=== PATIENT | female | born 1960 | race Caucasian/White ===

== ENCOUNTER 2020-09-25 12:08 | Outpatient (CLI) | payer OTHER, SELFPAY ==
--- NOTE | ~2020-09-25 | MM_ITS ---
EXAMINATION: MM screening jasmin BI w vivian HISTORY: Screening TECHNIQUE: Craniocaudal and mediolateral oblique 3-D tomosynthesis images were obtained and synthetic 2-D images were generated. CAD analysis was submitted and interpreted. COMPARISON: Comparison to multiple prior studies sequentially, with oldest reviewed study dated 07/05. BREAST PARENCHYMAL COMPOSITION: There are scattered areas of fibroglandular density. FINDINGS: There is no evidence of suspicious mass, calcification, or architectural distortion to sugg est malignancy in either breast. There has been no suspicious interval change. IMPRESSION: 1. No mammographic evidence of malignancy. 2. Recommend routine screening mammography in one year. BI-RADS Category 1: Negative Reviewed, dictated and finalized at location A.
--- NOTE | ~2020-09-25 | DEXA_ITS ---
Bone Density Report Name: Clover Bonilla Age: 60 Sex: Female Ethnicity: White Date of : 1960 Indication: postmenopausal; screening for osteoporosis; asthma or emphysema; Referring Provider: Cricket Logan Study: Bone densitometry was performed. Exam Date: September 25, 2020 Accession number: [id number] Bone Density: Region BMD T-score Z-score Classification AP Spine(L1-L4) 0.796 -2.3 -0.9 Osteopenia Femoral Neck (Left) 0.601 -2.2 -1.0 Osteopenia Total Hip (Left) 0.857 -0.7 0.2 Normal Femoral Neck (Right) 0.570 -2.5 -1.3 Osteoporosis Total Hip (Right) 0.861 -0.7 0.2 Normal Femoral Neck Mean 0.586 -2.4 -1.1 Osteopenia Total Hip Mean 0.859 -0.7 0.2 Normal World Health Organization criteria for BMD impression classify patients as: Normal (T-score at or above -1.0), Osteopenia (T-score between -1.0 and -2.5), or Osteoporosis (T-score at or below -2.5). 10-year Fracture Risk: FRAX not reported because: Some T-score for Spine Total or Hip Total or Femoral Neck at or below -2.5 Previous Exams: Region Exam Age BMD T-score BMD Change BMD Change Date g/cm2 vs Baseline vs Previous AP Spine (L1-L4) 09/25/2020 60 0.796 -2.3 -0.255 (-24.3% -0.255 (-24.3% 08/12/2012 51 1.052 0.0 Total Hip(Left) 09/25/2020 60 0.857 -0.7 -0.078 (-8.3%) -0.078 (-8.3%) 08/12/2012 51 0.934 -0.1 Total Hip(Right) 09/25/2020 60 0.861 -0.7 -0.087 (-9.1%) -0.087 (-9.1%) 08/12/2012 51 0.948 0.0 *Denotes significance at 95% confidence level, LSC for AP Spine = 0.022 g/cm2, LSC for Total Hip = 0.027 g/cm2 # Denotes dissimilar scan types or analysis methods Clinical Information Provided by Patient: Has used the following medications: Vitamin D Has the following medical conditions: Asthma or Emphysema Patient maximum height was 62 No regular weight bearing exercise Does not regularly consume dairy products Drinks caffeinated beverages Onset of menses at age 14 Number of children 2 Impression: The patient has osteoporosis, based on the Right Femoral Neck T-score. No significant bone loss was observed. Discussion: INCREASED RISK OF FRACTURE. BONE DENSITY IS UNDESIRABLY LOW AT ONE OR MORE SKELETAL SITES, CONSISTENT WITH POSTMENOPAUSAL OSTEOPOROSIS. This patient's lowest T-score meets the World Health Organization's (WHO) criteria for osteoporosis at one or more sites (T-score -2.5 or below). In untreated patients, the risk of osteoporo
== END 2020-09-25 12:09 | disposition home or self-care (01) ==
LOC: CHSIMG 12:10
PROVIDERS: PCP Internal Medicine; Visit Provider Internal Medicine
DX: M81.0 Age-related osteoporosis without current pathological fracture (principal); Z12.31 Encounter for screening mammogram for malignant neoplasm of breast
CPT/HCPCS: 77063; 77067; 77080

== ENCOUNTER 2021-08-05 10:43 | Emergency (ER) | payer OTHER, SELFPAY ==
[2021-08-05 10:50] VITALS: BP 155/88; PULSE 81; RESP 16; TEMP 36.9; O2SAT 95
--- NOTE | 2021-08-05 11:31 | ED.EAR ---
HPI - Ear Problem General Chief complaint: Ear Stated complaint: earache and bleeding left side Time Seen by Provider: 08/05/21 10:45 Source: patient and RN notes reviewed Mode of arrival: ambulatory Limitations: no limitations History of Present Illness MD Complaint: ear pain and ear discharge Location: left ear Duration: constant Severity: mild Relieving factors: nothing Exacerbating factors: chewing Discharge from ear: Reports yes - bloody Associated symptoms ear: decreased hearing and external ear tenderness Treatment prior to arrival: none Related Data Allergies Allergy/AdvReac Type Severity Reaction Status Date / Time No Known Allergies Allergy Verified 08/05/21 11:00 Review of Systems Review of Systems: All systems reviewed & are unremarkable except as noted in HPI and below ENT: Reports nasal congestion PMFSH Past Medical History Medical History Otitis media Exam Const: General: no acute distress and alert Nutritional Appearance: well nourished Orientation/consciousness: patient oriented x3 Limitations: no limitations HENMT: Head: normal to inspection Ears: external ears normal and TM abnormal (left TM rupture with heme colored d/c. mild pharyngeal redness) Eyes: Conjunctivae: conjunctivae normal Pupils: Equal, round and reactive pupils present EOM: EOMs intact bilaterally Neck: Neck: normal visual inspection and no lymphadenopathy Other: supple Chest: Chest palpation & inspection: normal inspection of the chest Resp: Effort & Inspection: normal respiratory effort Auscultation: clear to auscultation bilaterally Cardio: Rate: regular rate Rhythm: regular rhythm GI: GI Palp: Yes Soft to palpation and No Tenderness to palpation present (GI) : General: Yes bladder normal to palpation and Yes no CVA tenderness Back/Spine/Pelvis: Back: no CVA tenderness Skin: General skin exam: normal color Rashes: no rashes Neuro: General: patient oriented x3, moves all extremities, no meningeal signs, no focal motor deficits and CN's II-XI intact bilaterally Extrem: General: normal to inspection and no pedal edema Psych: Appearance: grossly normal and well kempt Mental Status: mental status grossly normal Affect: normal affect Attitude: cooperative Thought content: Yes Normal thought content present Course Course Emergency Course: Pt was stable in the ED. Reevaluation(s) Reevaluation #1: VSS Date: 08/05/21 Time: 11:40 Vital Signs Vital signs: Vital Signs Temperature 36.9 C 08/05/21 10:50 Pulse Rate 81 08/05/21 10:50 Respiratory Rate 16 08/05/21 10:50 Blood Pressure 155/88 H 08/05/21 10:50 Pulse Oximetry 95 08/05/21 10:50 Temperature 36.9 C 08/05/21 10:50 Pulse Rate 81 08/05/21 10:50 Respiratory Rate 16 08/05/21 10:50 Blood Pressure 155/88 H 08/05/21 10:50 Pulse Oximetry 95 08/05/21 10:50 Medical Decision Making Differential Diagnosis Differential Diagnosis: OM, ruptured left TM, Medical Records Medical records reviewed: Yes I reviewed the external patient's medical records. Vital Signs Vital Signs: Vital Signs Temperature 36.9 C 08/05/21 10:50 Pulse Rate 81 08/05/21 10:50 Respiratory Rate 16 08/05/21 10:50 Blood Pressure 155/88 H 08/05/21 10:50 Pulse Oximetry 95 08/05/21 10:50 Temperature 36.9 C 08/05/21 10:50 Pulse Rate 81 08/05/21 10:50 Respiratory Rate 16 08/05/21 10:50 Blood Pressure 155/88 H 08/05/21 10:50 Pulse Oximetry 95 08/05/21 10:50 Critical Care Time Critical Care Time Critical Care Time: No Total Critical Care Time: 0 Discharge Plan Discharge Clinical Impression: Otitis media Qualifiers: Otitis media type: suppurative Chronicity: acute Laterality: left Recurrence: non-recurrent Spontaneous tympanic membrane rupture: with spontaneous rupture Qualified Code(s): H66.012 - Acute suppurative otitis media with spontaneous rupture of
[2021-08-05] MEDS: guaiFENesin 12 HR 600 MG TABCR (11:35)
[2021-08-05] MEDS: ACETAMINOPHEN 325 MG TABLET 650 MG PO (11:36)
== END 2021-08-05 11:45 | disposition home or self-care (01) ==
PROVIDERS: Emergency Provider Emergency Medicine; PCP Internal Medicine
DX: H66.012 Acute suppurative otitis media with spontaneous rupture of ear drum, left ear (principal)
CPT/HCPCS: 99283; A9270

== ENCOUNTER 2021-09-03 07:29 | Outpatient (CLI) | payer OTHER, SELFPAY ==
--- NOTE | ~2021-09-03 | MM_ITS ---
EXAMINATION: MM screening jasmin BI w vivian HISTORY: Screening mammogram TECHNIQUE: Craniocaudal and mediolateral oblique 3-D tomosynthesis images were obtained and synthetic 2-D images were generated. CAD analysis was submitted and interpreted. COMPARISON: 10/12/2020, 07/15/2016 bilateral digital screening mammogram examinations BREAST PARENCHYMAL COMPOSITION: There are scattered areas of fibroglandular density. FINDINGS: There are several stable circumscribed benign appearing intramammary lymph nodes in the pos terior upper outer quadrant of the left breast. There is no evidence of suspicious mass, calcification, or architectural distortion to suggest malig jaylen in either breast. There has been no suspicious interval change. IMPRESSION: 1. No mammographic evidence of malignancy. 2. Recommend routine screening mammography in one year. BI-RADS Category 2: Benign finding(s). Reviewed, dictated and finalized at location A.
== END 2021-09-03 07:30 | disposition home or self-care (01) ==
LOC: CHSIMG 07:30
PROVIDERS: PCP Internal Medicine; Visit Provider Internal Medicine
DX: Z12.31 Encounter for screening mammogram for malignant neoplasm of breast (principal)
CPT/HCPCS: 77063; 77067

== ENCOUNTER 2021-11-12 14:24 | Outpatient (CLI) | payer OTHER, SELFPAY ==
--- NOTE | ~2021-11-12 | XR_ITS ---
EXAM: XR hand RT min 3V DATE: 11/12/2021 14:47 HISTORY: RT 2nd MCP joint pain swelling x 2wks, NKI . COMPARISON: None available. FINDINGS: Mildly decreased mineralization. No fracture or dislocation. No lytic or blastic lesion. S hort fifth metacarpal. Mild narrowing at the radiocarpal joint, with subchondral cyst formation in th e lunate. Mild degenerative narrowing in the finger joints. No erosion or periosteal change. Soft tis jessica swelling over the second MCP. IMPRESSION: No acute osseous finding. Scattered degenerative changes. Reviewed, dictated and finalized at location K.
== END 2021-11-12 14:25 | disposition home or self-care (01) ==
LOC: CHSIMG 14:26
PROVIDERS: PCP Internal Medicine; Visit Provider Nurse Practitioner Family
DX: M79.641 Pain in right hand (principal)
CPT/HCPCS: 73130

== ENCOUNTER 2022-12-04 12:03 | Outpatient (CLI) | payer OTHER, SELFPAY ==
--- NOTE | ~2022-12-04 | DEXA_ITS ---
Bone Density Report Name: KATHIA THURMAN Age: 62 Sex: Female Ethnicity: White Date of : 1960 Indication: postmenopausal; screening for osteoporosis; history of glucocorticoids; asthma or emphysema; Referring Provider: Cricket Logan Study: Bone densitometry was performed. Exam Date: December 04, 2022 Accession number: [id number] Bone Density: Region BMD T-score Z-score Classification AP Spine(L1-L4) 0.848 -1.8 -0.3 Osteopenia Femoral Neck (Left) 0.594 -2.3 -1.0 Osteopenia Total Hip (Left) 0.882 -0.5 0.5 Normal Femoral Neck (Right) 0.581 -2.4 -1.1 Osteopenia Total Hip (Right) 0.868 -0.6 0.4 Normal Femoral Neck Mean 0.588 -2.4 -1.0 Osteopenia Total Hip Mean 0.875 -0.5 0.5 Normal World Health Organization criteria for BMD impression classify patients as: Normal (T-score at or above -1.0), Osteopenia (T-score between -1.0 and -2.5), or Osteoporosis (T-score at or below -2.5). 10-year Fracture Risk: FRAX not reported because: Treated for osteoporosis Clinical Information Provided by Patient: Has taken Glucocorticoids Is being treated for osteoporosis Has used the following medications: Fosamax (i.e. alendronate), Vitamin D, Calcium Has the following medical conditions: Asthma or Emphysema Patient maximum height was 62 Menopause Age: 51 Does not regularly consume dairy products Drinks caffeinated beverages Onset of menses at age 14 Number of children 2 Impression: The patient has low bone mass, based on the Right Femoral Neck T-score. The patient has risk factors, including: history of glucocorticoid therapy. Discussion: It is important to ask patients whether they are taking their medications and to encourage continued and appropriate compliance with their osteoporosis therapies to reduce fracture risk. It is also important to review their risk factors and encourage appropriate calcium and vitamin D intakes, exercise, fall prevention and other lifestyle measures. Follow-Up: Consider a repeat BMD and Vertebral Fracture Assessment (VFA) exam in 2 years or sooner if medically necessary, to reassess this patient's status. Reported by: Dr. Danny Hobson on 12/04/2022 12:36:00 PM. Reviewed, dictated and finalized at location Armand OLMOS
--- NOTE | ~2022-12-04 | MM_ITS ---
EXAMINATION: MM screening jasmin BI w vivian HISTORY: Screening mammogram TECHNIQUE: Craniocaudal and mediolateral oblique 3-D tomosynthesis images were obtained and synthetic 2-D images were generated. CAD analysis was submitted and interpreted. COMPARISON: September 03, 2021, September 25, 2020, March 11, 2019 bilateral screening mammogram examinations BREAST PARENCHYMAL COMPOSITION: There are scattered areas of fibroglandular density. FINDINGS: Stable appearing benign probable intramammary lymph nodes are again noted on the left. Ther e is no evidence of suspicious mass, calcification, or architectural distortion to suggest malignancy in either breast. There has been no suspicious interval change. IMPRESSION: 1. No mammographic evidence of malignancy. 2. Recommend routine screening mammography in one year. BI-RADS Category 2: Benign finding(s). Reviewed, dictated and finalized at location A.
== END 2022-12-04 12:04 | disposition home or self-care (01) ==
PROVIDERS: PCP Internal Medicine; Visit Provider Internal Medicine
DX: Z12.31 Encounter for screening mammogram for malignant neoplasm of breast (principal); Z78.0 Asymptomatic menopausal state; M85.89 Other specified disorders of bone density and structure, multiple sites
CPT/HCPCS: 77063; 77067; 77080

== ENCOUNTER 2023-01-23 14:21 | Outpatient (CLI) | payer OTHER, SELFPAY ==
--- NOTE | ~2023-01-23 | XR_ITS ---
EXAMINATION: XR sinus min 3V DATE: 01/23/2023 14:42 INDICATION: Headaches. Tinnitus. TECHNIQUE: 5 views of the paranasal sinuses were obtained. COMPARISON: CT maxillofacial 10/03/2015 FINDINGS: There is leftward deviation of the nasal septum. The paranasal sinuses are grossly clear. IMPRESSION: 1. Leftward deviation of the nasal septum. Reviewed, dictated and finalized at location E.
== END 2023-01-23 14:22 | disposition home or self-care (01) ==
LOC: CHSIMG 14:22
PROVIDERS: PCP Internal Medicine; Visit Provider Nurse Practitioner Family
DX: J32.9 Chronic sinusitis, unspecified (principal); J34.2 Deviated nasal septum
CPT/HCPCS: 70220

== ENCOUNTER 2023-03-18 09:41 | Outpatient (CLI) | payer OTHER, SELFPAY ==
--- NOTE | ~2023-03-18 | XR_ITS ---
EXAMINATION: XR_CERV2-3V_CR DATE: 03/18/2023 10:17 INDICATION: Left neck pain. TECHNIQUE: 3 views of the cervical spine were obtained. COMPARISON: None. FINDINGS: There is 2 mm retrolisthesis of C5 on C6. Vertebral body heights are normal. There is mildl y decreased disc height at C4-C5, moderately decreased disc height at C5-C6, and mildly decreased dis c height at C6-C7. There is multilevel uncovertebral joint osteoarthritis, severe on the left at C5-C 6. There is multilevel mild facet joint osteoarthritis. There is mild central canal stenosis at C5-C6 . No prevertebral soft tissue swelling. IMPRESSION: 1. Moderate cervical spondylosis. Reviewed, dictated and finalized at location E.
== END 2023-03-18 09:42 | disposition home or self-care (01) ==
PROVIDERS: PCP Internal Medicine; Visit Provider Internal Medicine
DX: M54.2 Cervicalgia (principal); M43.02 Spondylolysis, cervical region
CPT/HCPCS: 72040

== ENCOUNTER 2023-04-05 08:54 | Outpatient (CLI) | payer OTHER, SELFPAY ==
--- NOTE | ~2023-04-05 | MR_ITS ---
EXAMINATION: MR cervical spine wo con DATE: 04/05/2023 11:40 INDICATION: Cervical radiculopathy. TECHNIQUE: Magnetic resonance imaging (MRI) of the cervical spine was performed without intravenous c ontrast. Sequences included sagittal T2-weighted FSE, sagittal T2-weighted FS FSE, sagittal T1-weight ed FSE, axial MERGE, and axial T2-weighted FSE. COMPARISON: Cervical spine radiographs 03/18/2023 FINDINGS: There is kyphosis of cervical spine. There is 2 mm retrolisthesis of C5 on C6. Vertebral aileen dy heights are normal. There is mildly decreased disc height at C3-C4, severely decreased disc height at C5-C6, and moderately decreased disc height at C6-C7. The spinal cord signal intensity is normal. The following disc levels are specifically discussed: C2-C3: The disc does not extend beyond the endplate margin. There is no uncovertebral joint osteoarth ritis. There is severe bilateral facet joint osteoarthritis. There is no neural foraminal stenosis. T here is no central canal stenosis. C3-C4: There is a central protrusion. There is no uncovertebral joint osteoarthritis. There is severe bilateral facet joint osteoarthritis. There is no neural foraminal stenosis. There is mild central c anal stenosis. C4-C5: There is a right central protrusion. There is no uncovertebral joint osteoarthritis. There is mild right and moderate left facet joint osteoarthritis. There is no neural foraminal stenosis. There is mild central canal stenosis. C5-C6: The disc is bulging. There is severe bilateral uncovertebral joint osteoarthritis. There is mi ld right and moderate left facet joint osteoarthritis. There is mild bilateral neural foraminal steno sis. There is mild central canal stenosis. C6-C7: The disc is bulging. There is moderate bilateral uncovertebral joint osteoarthritis. There is mild bilateral facet joint osteoarthritis. There is mild right neural foraminal stenosis. There is no central canal stenosis. C7-T1: The disc does not extend beyond the endplate margin. There is no uncovertebral joint osteoarth ritis. There is severe bilateral facet joint osteoarthritis. There is mild bilateral neural foraminal stenosis. There is no central canal stenosis. IMPRESSION: 1. Severe cervical spondylosis. Reviewed, dictated and finalized at location A. NURSE
== END 2023-04-05 08:55 | disposition home or self-care (01) ==
PROVIDERS: PCP Internal Medicine; Visit Provider Internal Medicine
DX: M54.12 Radiculopathy, cervical region (principal); M43.02 Spondylolysis, cervical region
CPT/HCPCS: 72141

== ENCOUNTER 2023-04-24 16:06 | Outpatient (CLI) | payer OTHER, SELFPAY ==
--- NOTE | ~2023-04-24 | XR_ITS ---
EXAMINATION: XR chest 2V DATE: 04/24/2023 16:58 INDICATION: Asthma. TECHNIQUE: Frontal and lateral views of the chest were obtained. COMPARISON: Chest 2 views 06/30/2017 FINDINGS: There is no pneumonia, pleural effusion, or pneumothorax. The heart size is normal. There a re prominent paracardial fat pads. IMPRESSION: 1. No acute cardiopulmonary disease. Reviewed, dictated and finalized at location A. NCIAL BUSINESS ANALYST
== END 2023-04-24 16:07 | disposition home or self-care (01) ==
LOC: CHSIMG 16:08
PROVIDERS: PCP Internal Medicine; Visit Provider Internal Medicine
DX: J45.909 Unspecified asthma, uncomplicated (principal)
CPT/HCPCS: 71046

== ENCOUNTER 2023-05-12 12:58 | Outpatient (CLI) | payer OTHER, SELFPAY | END 2023-05-12 12:59 | disposition home or self-care (01) | LOC: CHSAUDIO 13:00 | PROVIDERS: PCP Internal Medicine; Visit Provider Internal Medicine | DX: H90.3 Sensorineural hearing loss, bilateral (principal); H93.13 Tinnitus, bilateral | CPT/HCPCS: 92557; 92567 ==

== ENCOUNTER 2023-07-14 11:04 | Outpatient (RCR) | payer OTHER, SELFPAY | END 2023-10-12 23:59 | disposition home or self-care (01) | LOC: CHSAUDIO 11:04 | PROVIDERS: PCP Internal Medicine; Visit Provider Internal Medicine | DX: Z46.1 Encounter for fitting and adjustment of hearing aid (principal) | CPT/HCPCS: 99199 ==

== ENCOUNTER 2023-07-16 14:04 | Emergency (ER) | payer OTHER, SELFPAY ==
[2023-07-16] VITALS (19 sets, daily range): BP systolic 122–139; BP diastolic 69–87; PULSE 94–107; RESP 22–44; TEMP 37.2; O2SAT 89–94
--- NOTE | ~2023-07-16 | XR_ITS ---
EXAMINATION: XR chest 1V portable INDICATION: Shortness of breath TECHNIQUE: Portable AP chest at 1438 hours COMPARISON: 04/24/2023 FINDINGS: The lungs are free of acute opacities. No pleural effusion or pneumothorax. The cardiomedia stinal silhouette is normal. IMPRESSION: 1. No acute cardiopulmonary abnormality. Reviewed, dictated and finalized at location B. CIATE PROFESSOR OF ECONOMICS
--- NOTE | 2023-07-16 14:11 | ED.SOB ---
HPI - SOB/Dyspnea General Chief Complaint: Shortness of Breath/Dyspnea Stated Complaint: SOB Time Seen by Provider: 07/16/23 14:11 62-year-old female with a history presents to the ER with six-day history -- nonproductive cough -- shortness of breath -- wheezing -- chest pain on deep breathing No fever or chills the patient was tested for influenza and COVID and outpatient clinic from when she was transferred. These tests were noted to be negative. Source: patient Mode of arrival: ambulatory Limitations: no limitations History of Present Illness MD elicited complaint: shortness of breath and cough Pertinent past history: asthma Onset (ago): day(s) ( 6 days) Timing: constant Severity: severe Exacerbating factors: exertion Relieving factors: rest Known history of: asthma Associated symptoms: cough and wheezing Related Data Home Medications Medication Instructions Recorded Confirmed albuterol sulfate 90 mcg/actuation 2 inh inhalation Q4H PRN SOB 07/16/23 07/16/23 aerosol inhaler alendronate 70 mg tablet 70 mg PO WEEKLY 07/16/23 07/16/23 amlodipine 5 mg tablet 5 mg PO DAILY 07/16/23 07/16/23 atorvastatin 40 mg tablet 40 mg PO DAILY 07/16/23 07/16/23 budesonide-formoterol HFA 160 2 inh inhalation BID 07/16/23 07/16/23 mcg-4.5 mcg/actuation aerosol inhaler (Symbicort) ipratropium 0.5 mg-albuterol 3 mg 3 ml inhalation Q6H PRN SOB 07/16/23 07/16/23 (2.5 mg base)/3 mL nebulization soln montelukast 10 mg tablet 10 mg PO DAILY 07/16/23 07/16/23 spironolactone 25 mg tablet 50 mg PO DAILY 07/16/23 07/16/23 trazodone 50 mg tablet 50 mg PO HS 07/16/23 07/16/23 Allergies Allergy/AdvReac Type Severity Reaction Status Date / Time fluticasone Allergy Unknown Verified 07/16/23 14:36 [From Advair Diskus] salmeterol Allergy Unknown Verified 07/16/23 14:36 [From Advair Diskus] Review of Systems Review of Systems: All systems reviewed & are unremarkable except as noted in HPI and below Constitutional: Constitutional: Reports as per HPI and Reports no additional constitutional complaints Eyes: Eyes: Reports as per HPI and Reports no additional eye complaints ENT: Reports system reviewed and no additional complaints, except as documented and Reports as per HPI Cardiovascular: Cardiovascular: Reports as per HPI and Reports no additional cardiovascular complaints Respiratory: Respiratory: Reports as per HPI, Reports cough, Reports dyspnea and Reports wheezing Gastrointestinal: Gastrointestinal: Reports as per HPI and Reports no additional gastrointestinal complaints Genitourinary: Genitourinary: Reports no additional female genitourinary complaints Musculoskeletal: Musculoskeletal: Reports no additional musculoskeletal complaints Integumentary/Breasts: Skin/Breast: Reports system reviewed and no additional complaints, except as docu and Reports as per HPI Neurologic: Reports system reviewed and no additional complaints, except as documented and Reports as per HPI Psychiatric: Psychiatric: Reports no additional psychiatric complaints and Reports as per HPI Endocrine: Endocrine: Reports no additional endocrine complaints and Reports as per HPI Hematologic/Lymphatic: Hematologic/Lymphatic: Reports no additional hematologic/lymphatic complaints and Reports as per HPI Allergic/Immunologic: Allergic/Immunologic: Reports no additional allergic/immunologic complaints and Reports as per HPI [facility] Past Medical History Medical History (Updated 07/16/23 @ 16:07 by Maxime Herrera MD) Asthma Otitis media Exam Const: General: ill appearing Orientation/consciousness: patient oriented x3 Limitations: no limitations HENMT: Head: normal to inspection Ears: external ears normal Face/Nose/Sinus: Normal external nose present Face and sinus: normal facial exam Mouth: Yes Normal oral and palatal mucosa present Throat: posterior oropharynx normal Eyes: Conjunctivae: conjunctivae normal Pupils: Equal
--- NOTE | 2023-07-16 14:15 | ECG_ITS ---
Measurements Intervals [place]bes Rate: 97 P: 208 WA: 141 QRS: 205 QRSD: 85 T: 207 QT: 297 QTc: 378 Interpretive Statements SINUS RHYTHM SIGNIIFICANT BASELINE ARTIFACT WHICH LIMITS INTERPRETATION NO PREVIOUS ECG AVAILABLE FOR COMPARISON Electronically Signed On 07-16-2023 15:55:42 LOSS MITIGATION SPECIALIST by Fannie Hunt M.D.
[2023-07-16] MEDS: ALBUTEROL SULFATE NEB 2.5 MG/3 ML INH INHALATION (14:21)
[2023-07-16 14:31] LABS: Base Excess ABG 2.2 mmol/L (0-2); Basophils Absolute Auto 0.03 K/mm3 (0.00-0.10); Basophils Percent Auto 0.3 % (0.0-1.0); Device ROOM AIR; Eosinophils Absolute Auto 0.03 K/mm3 (0.02-0.50); Eosinophils Percent Auto 0.3 % (1.0-6.0); HCO3 ABG 24.7 mmol/L (23-29); Hematocrit 40.4 % (35.0-49.0); Hemoglobin 13.5 g/dL (12.0-15.0); Immature Granulocyte Absolute 0.06 K/mm3 (0.00-0.00); Immature Granulocyte Percent A 0.5 % (0.0-0.0); Lymphocytes Percent Auto 16.1 % (18.0-42.0); Mean Corpuscular HGB Conc 33.4 g/dL (32.0-36.0); Mean Corpuscular Hemoglobin 31.8 pg (27.0-31.0); Mean Corpuscular Volume 95.1 fL (78.0-102.0); Mean Platelet Volume 9.8 fl (9.2-11.8); Modified Allen's Test Pass; Monocytes Absolute Auto 1.13 K/mm3 (0.10-0.90); Monocytes Percent Auto 9.6 % (2.0-11.0); Neutrophils Absolute Auto 8.7 K/mm3 (1.7-7.2); Neutrophils Percent Auto 73.2 % (50.0-70.0); Oxygen Saturation ABG 97.3 % (95-97); PCO2 ABG 32.6 mmHg (35-45); PO2 ABG 94.8 mmHg (80-90); Platelet Count Result 340 K/mm3 (150-420); Red Blood Count 4.25 M/mm3 (4.20-5.40); Red Cell Distribution Width 11.9 % (11.6-14.4); Site Drawn RIGHT RADIAL; Total Hemoglobin 14.8 g/dL (12.0-18.0); White Blood Count 11.8 K/mm3 (4.8-10.8)
[2023-07-16] MEDS: ALPRAZolam (*CRX) 0.5 MG TABLET 0.25 MG PO (14:52)
[2023-07-16 14:53] LABS: Lactic Acid Reflex 1.4 mmol/L (0.4-2.0)
[2023-07-16 14:56] LABS: Alanine Aminotransferase 98 U/L (14-59); Albumin Level 3.8 g/dL (3.4-5.0); Alkaline Phosphatase 81 U/L (46-116); Anion Gap 13 mmol/L (8-16); Aspartate Amino Transferase 25 U/L (15-37); Bilirubin,Total 0.4 mg/dL (0.00-1.00); Blood Urea Nitrogen 13 mg/dL (7-18); Calcium 8.8 mg/dL (8.5-10.1); Carbon Dioxide 25 mmol/L (21-32); Chloride 101 mmol/L (98-108); Estimated CRCL calculation 59 ml/min; Estimated Glomerular Filt Rate > 60; Glucose 113 mg/dL (70-99); NT Pro B Type Natriuretic Pept 107 pg/mL (0-125); Osmolality Calculated 289 mOsm/kg (285-295); Potassium 2.8 mmol/L (3.5-5.1); Sodium 139 mmol/L (136-145); Total Protein 6.9 g/dL (6.4-8.2); Troponin I 4.3 ng/L (0.00-60.4)
== END 2023-07-16 16:35 | disposition home or self-care (01) ==
PROVIDERS: Emergency Provider Internal Medicine Critical Care Medicine; PCP Internal Medicine
DX: J45.31 Mild persistent asthma with (acute) exacerbation (principal); F41.9 Anxiety disorder, unspecified; Z79.899 Other long term (current) drug therapy
CPT/HCPCS: 36415; 36600; 71045; 80053; 82805; 83605; 83880; 84484; 85025; 93005; 99284; A9270

== ENCOUNTER 2023-08-22 10:22 | Outpatient (RCR) | payer OTHER, SELFPAY | END 2023-08-22 23:59 | disposition home or self-care (01) | LOC: ANHAUDIO 10:22 | PROVIDERS: PCP Internal Medicine | DX: Z46.1 Encounter for fitting and adjustment of hearing aid (principal) | CPT/HCPCS: V5261 ==